=== PATIENT | female | born 1980 | race Caucasian/White ===

== ENCOUNTER 2016-08-12 18:41 | Emergency (ER) | payer MEDICAID ==
--- NOTE | 2016-08-12 18:56 | ER Document Report ---
ED Medical Screen (RME) - General Chief Complaint: Flu Symptoms Stated Complaint: FEVER,NAUSEA,BACK PAIN,CHEST PAIN Notes: 36-year-old female who states she's had flulike symptoms for approximately 4 days. I greeted and performed a rapid initial assessment of this patient. Comprehensive ED assessment and evaluation of the patient, analysis of test results and completion of the medical decision making process will be conducted by additional ED providers. TRAVEL OUTSIDE OF THE [place] IN LAST 30 DAYS: No - Related Data Allergies/Adverse Reactions: No Known Allergies Allergy (Verified 04/15/16 14:50) Past Medical History Psychiatric Medical History: Reports: Hx Anxiety - Immunizations Immunizations up to date: Yes Hx Diphtheria, Pertussis, Tetanus Vaccination: Yes Physical Exam - Vital signs Vitals: Temp Pulse Resp BP Pulse Ox 98.6 F 98 20 106/68 97 08/12/16 18:53 08/12/16 18:53 08/12/16 18:53 08/12/16 18:53 08/12/16 18:53 Course - Vital Signs Vital signs: Temp Pulse Resp BP Pulse Ox 98.6 F 98 20 106/68 97 08/12/16 18:53 08/12/16 18:53 08/12/16 18:53 08/12/16 18:53 08/12/16 18:53
[2016-08-12] MEDS ORDERED: ACETAMINOPHEN 325 MG TABLET PO ONE (19:58)
[2016-08-12] MEDS ORDERED: DIPHENHYDRAMINE HCL 25 MG CAPSULE PO ONE (19:58)
[2016-08-12] MEDS ORDERED: METOCLOPRAMIDE HCL 10 MG TABLET PO ONE (19:58)
--- NOTE | 2016-08-12 20:00 | ER Document Report ---
Addendum entered and electronically signed by CINTHIA TRINH PA 08/13/16 01:17: Course - Re-evaluation Re-evalutation: 08/13/16 Nurse Janet approached me about patient to be discharged, patient had repeat discharge final signs which showed new tachycardia and mild hypotension, I went and saw the patient, patient is noted to be tachycardic but is not in distress and is generally well-appearing. Patient is belching, she did appear nauseated and is asking for nausea medication. Examination and review of laboratory workup is suggestive of pyelonephritis, concern for sepsis with pyelonephritis. Recommended to patient that she receive IV antibiotics, IV fluids, and additional evaluation in the emergency department with potential admission, patient refuses, significant other refuses, they both state that they will agree to nausea medication now and then they will leave. After discussion patient does agree to IM Rocephin and reevaluation. On reevaluation patient continues to be tachycardic, blood pressure not significantly changed from prior or initial blood pressure. I recommended at that point that patient be admitted to the hospital for pyelonephritis and IV antibiotics. Patient refused, states that she wants to go home, I explained that she could become septic and , patient states that she understands this but that if she does not feel better by the morning she will return, she states that she will sign out AGAINST MEDICAL ADVICE and will not consider anything further. I discussed this once more with patient, she again states she'll sign out AGAINST MEDICAL ADVICE and that she understands the risks. I do feel patient has understanding of the risks because these have been discussed in full detail and patient is not altered, she does verbalize that she understand she is sick and that she will return in the morning if she does not feel any better and that she will return sooner if she feels worse. Patient signed out AGAINST MEDICAL ADVICE after receiving Rocephin. - Vital Signs Vital signs: Temp Pulse Resp BP Pulse Ox 98.9 F 127 H 16 106/50 L 97 08/12/16 23:53 08/12/16 23:53 08/12/16 23:53 08/12/16 23:53 08/12/16 23:53 - Laboratory Result Diagrams: 08/12/16 20:27 08/12/16 20:27 Laboratory results interpreted by me: 08/12/16 08/12/1617 20:27 20:27 21:25 WBC 16.0 H Hgb 11.9 L Band Neutrophils % 14 H Lymphocytes % (Manual) 2 L Abs Neuts (Manual) 13.8 H Abs Monocytes (Manual) 1.8 H Sodium 135.5 L Potassium 3.2 L Glucose 132 H Calcium 8.3 L Total Protein 5.5 L Albumin 3.0 L Urine Protein 100 H Urine Bilirubin SMALL H Urine Urobilinogen 4.0 H Ur Leukocyte Esterase LARGE H Original Note: HPI - HPI Patient complains to provider of: body aches and fever Pain Level: 5 Context: patient is a 36 year old female who presents to the ED for body aches, head ache and fever for 4 days. headache is described as focal over her left eye, consistent with her h/o migraine headaches. She denies any light or sound sensitivity, nausea without vomiting. Tolerating PO without difficulty, has been compliant with PO intake of water. Admits to nasal drainage that has started over the past 2 days. Denies any ear pain, sinus pressure, cough, chest pain, chest congestion, abdominal pain, urinary symptoms, abnormal BM's PMH: migraines, depression no PSH SH; 19 pack year, no etoh, social marijuana use - REPRODUCTIVE Reproductive: DENIES: : - DERM Skin Color: Normal Past Medical History - General Information source: Patient - Social History Smoking Status: Unknown if Ever Smoked Family History: Reviewed & Not Pertinent, CVA - Father Patient has suicidal ideation: No Patient has homicidal ideation: No Renal/ Medical History: Denies: Hx Peritoneal Dialysis Psychiatric Medical History: Reports: Hx Anxiety - Immunizations Immunizations up to date: Yes Hx Diphtheria, Pertussis, Tetanus Vaccination: Yes Vertical Provider Document - CONSTITUTIONAL Agree With Documented VS: Yes Exam Limitations: No Limitations General Appearance: WD/WN, Mild Distress - INFECTION CONTROL TRAVEL OUTSIDE OF THE [place] IN LAST 30 DAYS: No - HEENT HEENT: Atraumatic, Normal ENT Exam, Normocephalic - NECK Neck: Normal Inspection, Other - no tenderness to palpation. negative: Lymphadenopathy-Left, Lymphadenopathy-Right - RESPIRATORY Respiratory: Breath Sounds Normal, No Respiratory Distress, Wheezing O2 Sat by Pulse Oximetry: 97 - CARDIOVASCULAR Cardiovascular: Regular Rate, Regular Rhythm, No Murmur Pulses: Normal: Radial - GI/ABDOMEN Gastrointestinal: Abdomen Soft, Abdomen Non-Tender, No Organomegaly, Normal Bowel Sounds - BACK Back: Normal Inspection - MUSCULOSKELETAL/EXTREMETIES Musculoskeletal/Extremeties: MAEW, FROM, Tender - all extremities, No Edema. negative: Eccymosis - NEURO Level of Consciousness: Awake, Alert, Appropriate Motor/Sensory: No Motor Deficit, No Sensory Deficit - DERM Integumentary: Warm, Dry, No Rash Course - Re-evaluation Re-evalutation: 08/12/16 22:47 patient is a 36 year old female who is HDS, NAD and afebrile. labs reveal mild leukocytosis which is consistent with length of symptoms and +UA for UTI. Patient will be treated with PO abx and can f/u with PCP. IN regards to her headache, she has responded well to imitrex and reglan. Educated the patient on proper oral hydration with H2O and gatorade versus soda. Patient can follow up with primary care if symptoms do not improve in 4-5 days - Vital Signs Vital signs: Temp Pulse Resp BP Pulse Ox 98.6 F 98 20 106/68 97 08/12/16 18:53 08/12/16 18:53 08/12/16 18:53 08/12/16 18:53 08/12/16 18:53 - Laboratory Result Diagrams: 08/12/16 20:27 08/12/16 20:27 Discharge - Discharge Clinical Impression: UTI (urinary tract infection) Qualifiers: Urinary tract infection type: acute cystitis Hematuria presence: without hematuria Qualified Code(s): N30.00 - Acute cystitis without hematuria Condition: Good Disposition: HOME, SELF-CARE Instructions: Acetaminophen, Ciprofloxacin ([facility]) Additional Instructions: URINARY TRACT INFECTION: Your evaluation indicates that you have a urinary tract infection. This is due to germs growing in the bladder. This is a common problem. This infection usually responds quickly to antibiotics. Your antibiotic should be taken exactly as prescribed. Drink plenty of fluids -- three to four quarts a day. Occasionally, a bladder anesthetic will be prescribed to help stop the feeling of urgency until the antibiotic has a chance to clear the infection. This may cause your urine to be dark orange. Certain urine infections require a culture. If the doctor obtained a culture, the results will be back in two days. You should call to see if a change in treatment is needed. A repeat urinalysis after you finish treatment is often recommended. The physician will let you know if further testing is required. Call the doctor if you develop fever, chills, flank pain, inability to urinate, or blood in the urine. ANTIBIOTIC THERAPY: You have been given an antibiotic prescription. It's important that you take all the medication, unless instructed otherwise by your physician. Failure to complete the entire course can result in relapse of your condition. Common side effects of antibiotics include nausea, intestinal cramping, or diarrhea. Women may develop vaginal yeast infections, and babies can get yeast (thrush) in the mouth following the use of antibiotics. Contact your physician if you develop significant side effects from this medication. Allergy to this antibiotic can result in hives, wheezing, faintness, or itching. If symptoms of allergy occur, stop the medication and call the doctor. CIPROFLOXACIN: You have been given an antibacterial agent, ciprofloxacin (Cipro). This medicine is not related to the penicillins, sulfas, cephalosporins, or tetracyclines. It is often given to patients who are allergic to these drugs. It has been chosen for you either because other drugs are not appropriate, or because of the nature of your problem. Cipro should not be taken with antacids, as these can decrease its effectiveness. It can be taken without regard to meals. CIPRO SHOULD NOT BE TAKEN BY CHILDREN, NURSING WOMEN, OR WOMEN. Although Cipro is usually well-tolerated, common side effects can include nausea and diarrhea. Contact your doctor if you experience any unusual symptoms while on this medication, such as joint pain or swelling, shortness of breath, wheezing, faintness, or hives. FOLLOW-UP CARE: If you have been referred to a physician for follow-up care, call the physician s office for an appointment as you were instructed or within the next two days. If you experience worsening or a significant change in your symptoms, notify the physician immediately or return to the Emergency Department at any time for re-evaluation. Prescriptions: Ciprofloxacin HCl [Cipro 500 mg Tablet] 500 mg PO BID #14 tablet Referrals: JULI YING [NO LOCAL MD] - Follow up as needed
[2016-08-12 20:46] LABS: HEMATOCRIT 36.8 % (36.0-47.0); HEMOGLOBIN 11.9 g/dL (12.0-15.5); HGB HCT DIFFERENCE -1.1; MEAN CORPUSCULAR HGB CONC 32.3 g/dL (32.0-36.0); MEAN CORPUSCULAR VOLUME 93 fl (80-97); RED BLOOD COUNT 3.97 10^6/uL (3.72-5.28); RED CELL DISTRIBUTION WIDTH 13.3 % (11.5-14.0)
[2016-08-12 21:03] LABS: ALANINE AMINOTRANSFERASE 20 U/L (9-52); ALKALINE PHOSPHATASE 60 U/L (38-126); ANION GAP 10 (5-19); ASPARTATE AMINO TRANSFERASE 21 U/L (14-36); BILIRUBIN,TOTAL 0.6 mg/dL (0.2-1.3); BLOOD UREA NITROGEN 19 mg/dL (7-20); CALCIUM 8.3 mg/dL (8.4-10.2); CARBON DIOXIDE 27 mmol/L (22-30); CHLORIDE 99 mmol/L (98-107); CREATININE RESULT 0.89 mg/dL (0.52-1.25); GLUCOSE 132 mg/dL (75-110); POTASSIUM 3.2 mmol/L (3.6-5.0); SODIUM 135.5 mmol/L (137-145); TOTAL PROTEIN 5.5 g/dL (6.3-8.2)
[2016-08-12] MEDS ORDERED: NAPROXEN 250 MG TABLET PO ONE (21:18)
[2016-08-12 21:24] LABS: BASOPHILS % (MANUAL) 0 % (0-2); EOSINOPHILS % (MANUAL) 0 % (0-6); LYMPHOCYTES % (MANUAL) 2 % (13-45); OVALOCYTES SLIGHT; PLATELET CLUMPS PRESENT; TOTAL CELLS COUNTED 100
[2016-08-12 21:26] LABS: BAND NEUTROPHILS % (MANUAL) 14 % (3-5)
[2016-08-12] MEDS ORDERED: SUMATRIPTAN SUCCINATE 25 MG TABLET PO ONE (21:30)
[2016-08-12] MEDS ORDERED: SUMATRIPTAN SUCCINATE 25 MG TABLET ONE (22:05)
[2016-08-12 22:11] LABS: AMORPHOUS SEDIMENT,URINE TRACE /HPF; APPEARANCE,URINE CLOUDY; BILIRUBIN,URINE SMALL (NEGATIVE); GLUCOSE, URINE NEGATIVE (NEGATIVE); KETONES,URINE NEGATIVE (NEGATIVE); LEUKOCYTE ESTERASE,URINE LARGE (NEGATIVE); NITRITE,URINE NEGATIVE (NEGATIVE); PROTEIN,URINE 100 mg/dL (NEGATIVE); URINE SPECIFIC GRAVITY 1.021
[2016-08-12] MEDS ORDERED: CIPROFLOXACIN HCL 500 MG TABLET PO ONE (22:25)
[2016-08-12] MEDS ORDERED: NAPROXEN 250 MG TABLET ONE (22:43)
[2016-08-12] MEDS ORDERED: CEFTRIAXONE 1 GM/D5W RTU 50 ML IV ONE (23:06)
[2016-08-12] MEDS ORDERED: NORMAL SALINE 1000 ML 1,000 ML IV ONE (23:07)
[2016-08-12] MEDS ORDERED: LIDOCAINE 1% INJ-PF (10 MG/ML) 30 ML SDV INJ ONE (23:10)
[2016-08-12] MEDS ORDERED: CEFTRIAXONE INJ 1000 MG VIAL IM ONE (23:10)
[2016-08-12] MEDS ORDERED: ONDANSETRON 4 MG TAB.RAPDIS PO ONE (23:10)
[2016-08-12 23:54] VITALS: BP 106/50
[2016-08-13 14:33] LABS: PATH REVIEW PATHOLOGIST REVIEWED
== END 2016-08-12 23:48 | disposition home or self-care (01) ==
LOC: ER 18:41
DX: N30.00 Acute cystitis without hematuria (principal); M79.1 Myalgia; R00.0 Tachycardia, unspecified; I95.9 Hypotension, unspecified; R50.9 Fever, unspecified; R51 Headache; F17.210 Nicotine dependence, cigarettes, uncomplicated
CPT/HCPCS: 99283; 96372; 36415; 87086; 85025; 87088; 80053; 81001; 87804; J3490 ×7; S0119; J0696; 87186

== ENCOUNTER 2016-09-06 17:49 | Emergency (ER) | payer MEDICAID ==
--- NOTE | 2016-09-06 17:58 | ER Document Report ---
ED Medical Screen (RME) - General Stated Complaint: SORE THROAT,FEVER Notes: patient is a 36 year old female c/o sore throat, back pain, fever and chills. yesterday. previously treated for pyelo I have greeted and performed a rapid initial assessment of this patient. A comprehensive ED assessment and evaluation of the patient, analysis of test results and completion of the medical decision making process will be conducted by additional ED providers. TRAVEL OUTSIDE OF THE [place] IN LAST 30 DAYS: No - Related Data Allergies/Adverse Reactions: zolpidem [From Ambien] Allergy (Verified 09/06/16 17:55) Past Medical History Renal/ Medical History: Denies: Hx Peritoneal Dialysis Psychiatric Medical History: Reports: Hx Anxiety - Immunizations Immunizations up to date: Yes Hx Diphtheria, Pertussis, Tetanus Vaccination: Yes
[2016-09-06 18:32] LABS: ABSOLUTE LYMPHOCYTES (AUTO) 1.6 10^3/uL (0.5-4.7); ABSOLUTE MONOCYTES (AUTO) 0.4 10^3/uL (0.1-1.4); ABSOLUTE NEUT (AUTO) 5.1 10^3/uL (1.7-8.2); BASOPHILS % (AUTO) 0.4 % (0-2); EOSINOPHILS % (AUTO) 0.3 % (0-6); HEMATOCRIT 38.6 % (36.0-47.0); HGB HCT DIFFERENCE 0.4; LYMPHOCYTES % (AUTO) 22.7 % (13-45); MEAN CORPUSCULAR HEMOGLOBIN 30.6 pg (27.0-33.4); MEAN CORPUSCULAR HGB CONC 33.7 g/dL (32.0-36.0); MEAN CORPUSCULAR VOLUME 91 fl (80-97); MONOCYTES % (AUTO) 5.7 % (3-13); RED BLOOD COUNT 4.26 10^6/uL (3.72-5.28); RED CELL DISTRIBUTION WIDTH 14.4 % (11.5-14.0); SEGMENTED NEUTROPHILS % (AUTO) 70.9 % (42-78); WHITE BLOOD COUNT 7.1 10^3/uL (4.0-10.5)
[2016-09-06 18:41] LABS: APPEARANCE,URINE CLEAR; BILIRUBIN,URINE NEGATIVE (NEGATIVE); GLUCOSE, URINE NEGATIVE (NEGATIVE); KETONES,URINE NEGATIVE (NEGATIVE); LEUKOCYTE ESTERASE,URINE NEGATIVE (NEGATIVE); NITRITE,URINE NEGATIVE (NEGATIVE); PROTEIN,URINE NEGATIVE (NEGATIVE); URINE SPECIFIC GRAVITY 1.011; UROBILINOGEN,URINE NEGATIVE mg/dL (<2.0)
[2016-09-06 18:48] LABS: ALANINE AMINOTRANSFERASE 28 U/L (9-52); ALBUMIN 4.8 g/dL (3.5-5.0); ALKALINE PHOSPHATASE 85 U/L (38-126); ANION GAP 12 (5-19); ASPARTATE AMINO TRANSFERASE 24 U/L (14-36); BILIRUBIN,TOTAL 0.4 mg/dL (0.2-1.3); BLOOD UREA NITROGEN 7 mg/dL (7-20); CALCIUM 9.4 mg/dL (8.4-10.2); CARBON DIOXIDE 25 mmol/L (22-30); CHLORIDE 103 mmol/L (98-107); CREATININE RESULT 0.92 mg/dL (0.52-1.25); GLUCOSE 89 mg/dL (75-110); SODIUM 140.2 mmol/L (137-145); TOTAL PROTEIN 7.7 g/dL (6.3-8.2)
--- NOTE | 2016-09-06 19:03 | ER Document Report ---
ED Fever - General Chief Complaint: Sore Throat Stated Complaint: SORE THROAT,FEVER Time seen by provider: 19:25 Mode of Arrival: Ambulatory Information source: Patient TRAVEL OUTSIDE OF THE [place] IN LAST 30 DAYS: No - HPI Onset: Yesterday Associated symptoms: Body/muscle aches, Chills, Earache, Fever, Headache, Hoarseness, Nausea, Vomiting, Rhinnorhea, Sore throat. denies: Diarrhea, Leg swelling, Weakness Notes: The patient arrives with multiple complaints at this time. She states that yesterday she started with a sore throat and slight hoarseness to her voice. This is progressed to body aches with low back pain, mild headache, fever, cough , nausea, vomiting 1 this morning. She also reports some lower abdominal pain. She denies any dysuria or hematuria. She denies any rash. She denies any numbness or tingling. She denies any neck stiffness. She denies any numbness, tingling, weakness, bowel or bladder dysfunction. She denies using IV drugs. She denies a history of diabetes or immunosuppression. She denies any blood thinners. - Related Data Allergies/Adverse Reactions: zolpidem [From Ambien] Allergy (Verified 09/06/16 17:55) Past Medical History - Social History Smoking Status: Never Smoker Chew tobacco use (# tins/day): No Frequency of alcohol use: None Drug Abuse: None Family History: Reviewed & Not Pertinent, CVA - Father Patient has suicidal ideation: No Patient has homicidal ideation: No Renal/ Medical History: Denies: Hx Peritoneal Dialysis Psychiatric Medical History: Reports: Hx Anxiety - Immunizations Immunizations up to date: Yes Hx Diphtheria, Pertussis, Tetanus Vaccination: Yes Review of Systems - Review of Systems -: Yes All other systems reviewed and negative Physical Exam - Vital signs Vitals: Temp Pulse Resp BP Pulse Ox 98.4 F 131 H 24 H 144/82 H 100 09/06/16 17:57 09/06/16 17:57 09/06/16 17:57 09/06/16 17:57 09/06/16 17:57 - General General appearance: Appears well, Alert In distress: None - HEENT Head: Normocephalic, Atraumatic Eyes: Normal Conjunctiva: Normal. No: Icteric Pupils: PERRL Ears: Normal External canal: Normal Tympanic membrane: Normal Nasal: Clear rhinorrhea Mouth/Lips: Normal Pharynx: Normal, Post nasal drainage. No: Exudate, Peritonsillar abscess, Retropharyngeal abscess, Uvular edema, Potential airway comprom. Neck: No: Anterior cervical chain, Meningismus - Respiratory Respiratory status: No respiratory distress Chest status: Nontender Breath sounds: Normal. No: Rales, Rhonchi, Stridor, Wheezing Chest palpation: Normal - Cardiovascular Rhythm: Regular Heart sounds: Normal auscultation Murmur: No - Abdominal Inspection: Normal Distension: No distension Bowel sounds: Normal Tenderness: Tender - Across lower abdomen. No: McBurney's point, Davis's sign , Guarding, Rebound Organomegaly: No organomegaly - Back Back: Normal, Nontender. No: CVA tenderness, Vertebra tenderness - Extremities General upper extremity: Normal inspection, Nontender, Normal color, Normal ROM , Normal temperature General lower extremity: Normal inspection, Nontender, Normal color, Normal ROM , Normal temperature, Normal weight bearing. No: Merrill's sign - Neurological Neuro grossly intact: Yes Cognition: Normal Orientation: AAOx4 [place] Coma Scale Eye Opening: Spontaneous [place] Coma Scale Verbal: Oriented [place] Coma Scale Motor: Obeys Commands Neli Coma Scale Total: 15 Speech: Normal Cranial nerves: Normal Motor strength normal: LUE, RUE, LLE, RLE Additional motor exam normals: Equal egg breaker Sensory: Normal Knee - Reflex grade: 2 = Normal Ankle - Reflex grade: 2 = Normal - Psychological Associated symptoms: Normal affect, Normal mood - Skin Skin Temperature: Warm Skin Moisture: Dry Skin Color: Normal Course - Re-evaluation Re-evalutation: 09/06/16 21:45 The patient states that she is feeling significant better at this time after her fluids and Toradol. All tests are unremarkable at this time. Awaiting the results of her chest x-ray and the patient will be discharged upon those results. 09/06/16 22:10 Patient is nontoxic appearing with stable vitals. Her labs are all unremarkable , strep and flu were negative. CT abdomen and pelvis and chest x-ray showed no acute abnormalities. Patient is feeling significantly better at this time. Urine is clear with no signs of infection. Is minimal tenderness on exam. She denies any vaginal symptoms at this time. Patient will be discharged home with prescriptions for Naprosyn and Vicodin. Follow up if not better in 3-5 days, sooner if getting worse. The patient is noted to have elevated blood pressure during today's emergency department visit. The patient was informed of this finding. The patient was instructed that this may be related to pre-hypertension and requires further evaluation with a primary care provider. The patient has no hypertensive symptoms at this time. - Vital Signs Vital signs: Temp Pulse Resp BP Pulse Ox 102.4 F H 115 H 18 138/91 H 99 09/06/16 19:23 09/06/16 19:23 09/06/16 19:23 09/06/16 19:23 09/06/16 19:23 - Laboratory Result Diagrams: 09/06/16 18:05 09/06/16 18:05 Laboratory results interpreted by me: 09/06/16 18:05 RDW 14.4 H Discharge - Discharge Clinical Impression: Febrile illness, acute, Myalgia Condition: Stable Disposition: HOME, SELF-CARE Instructions: Viral Syndrome ([facility]) Additional Instructions: Take medications as prescribed. Drink plenty fluids. Follow up if not better in 3-5 days, sooner if getting worse. Your blood pressure was elevated during today's visit. Have this rechecked with your doctor. Prescriptions: Hydrocodone Bit/Homatropine [Hycodan Syrup 5-1.5 mg/5 ml Ud Cup] 5 ml PO Q4HP PRN #120 ml PRN Reason: Naproxen Sodium 550 mg PO BID PRN #20 tablet PRN Reason: Forms: Elevated Blood Pressure
[2016-09-06] MEDS ORDERED: ONDANSETRON HCL INJ/PF 4 MG/2 ML SDV IV ONE (19:32)
[2016-09-06] MEDS ORDERED: NORMAL SALINE 1000 ML 1,000 ML IV ONE (19:32)
[2016-09-06] MEDS ORDERED: KETOROLAC TROMETHAMINE INJ/PF 30 MG/1 ML SDV IV ONE (19:32)
[2016-09-06] MEDS ORDERED: ACETAMINOPHEN 325 MG TABLET PO ONE (21:44)
[2016-09-06 22:37] VITALS: BP 136/82
== END 2016-09-06 22:37 | disposition home or self-care (01) ==
LOC: ER 17:49
DX: J02.9 Acute pharyngitis, unspecified (principal); R50.9 Fever, unspecified; M79.1 Myalgia
CPT/HCPCS: 99284; 36415; 87070; 87086; 87880; 85025; 81025; 80053; 81001; 87804; 71020; 74177; J3490; J1885; J2405

== ENCOUNTER 2016-12-18 15:53 | Emergency (ER) | payer MEDICAID ==
[2016-12-18] MEDS ORDERED: ONDANSETRON 4 MG TAB.RAPDIS PO ONE (16:56)
--- NOTE | 2016-12-18 16:56 | ER Document Report ---
ED Medical Screen (RME) - General Chief Complaint: Nausea/Vomiting Stated Complaint: VOMITING Time Seen by Provider: 12/18/16 16:55 Notes: Pt states vomiting started this morning after eating a bite of a hamburger. Given Zofran this family at [facility] but continues to vomit. No fever, did have diarrhea x 2 this am. States she has vomited about 30 times. No sick contacts. I have greeted and performed a rapid initial assessment of this patient. A comprehensive ED assessment and evaluation of the patient, analysis of test results and completion of the medical decision making process will be conducted by additional ED providers. TRAVEL OUTSIDE OF THE [place] IN LAST 30 DAYS: No - Related Data Allergies/Adverse Reactions: zolpidem [From Ambien] Allergy (Verified 12/18/16 16:55) Past Medical History Renal/ Medical History: Denies: Hx Peritoneal Dialysis Psychiatric Medical History: Reports: Hx Anxiety - Immunizations Immunizations up to date: Yes Hx Diphtheria, Pertussis, Tetanus Vaccination: Yes Physical Exam - Vital signs Vitals: Temp Pulse Resp BP Pulse Ox 97.4 F 51 L 16 134/80 H 100 12/18/16 16:36 12/18/16 16:36 12/18/16 16:36 12/18/16 16:36 12/18/16 16:36 Course - Vital Signs Vital signs: Temp Pulse Resp BP Pulse Ox 97.4 F 51 L 16 134/80 H 100 12/18/16 16:36 12/18/16 16:36 12/18/16 16:36 12/18/16 16:36 12/18/16 16:36
[2016-12-18] MEDS ORDERED: NORMAL SALINE 1000 ML 1,000 ML IV ONE (16:57)
[2016-12-18 17:55] LABS: AMORPHOUS SEDIMENT,URINE TRACE /HPF; APPEARANCE,URINE CLOUDY; BILIRUBIN,URINE NEGATIVE (NEGATIVE); GLUCOSE, URINE NEGATIVE (NEGATIVE); KETONES,URINE 20 mg/dL (NEGATIVE); LEUKOCYTE ESTERASE,URINE MODERATE (NEGATIVE); NITRITE,URINE NEGATIVE (NEGATIVE); PROTEIN,URINE 100 mg/dL (NEGATIVE); URINE SPECIFIC GRAVITY 1.028; UROBILINOGEN,URINE NEGATIVE mg/dL (<2.0)
[2016-12-18] MEDS ORDERED: METOCLOPRAMIDE HCL INJ/PF 10 MG/2 ML SDV IV ONE (18:26)
[2016-12-18] MEDS ORDERED: PANTOPRAZOLE SODIUM 40 MG VIAL IV ONE (18:26)
--- NOTE | 2016-12-18 19:24 | ER Document Report ---
ED GI/ - General Chief Complaint: Nausea/Vomiting Stated Complaint: VOMITING Time Seen by Provider: 12/18/16 16:55 Notes: The patient is a 36-year-old female, no past medical history, presents with one day of nausea, vomiting and watery diarrhea after she ate a hamburger at [employer]. She is vomiting up anything she drinks. She denies fevers, abdominal pain, hematemesis, urinary symptoms, blood in stool or chest pain TRAVEL OUTSIDE OF THE [place] IN LAST 30 DAYS: No - Related Data Allergies/Adverse Reactions: zolpidem [From Ambien] Allergy (Verified 12/18/16 16:55) Past Medical History - Social History Smoking Status: Current Every Day Smoker Chew tobacco use (# tins/day): No Frequency of alcohol use: None Drug Abuse: None Family History: Reviewed & Not Pertinent, CVA - Father Renal/ Medical History: Denies: Hx Peritoneal Dialysis Psychiatric Medical History: Reports: Hx Anxiety - Immunizations Immunizations up to date: Yes Hx Diphtheria, Pertussis, Tetanus Vaccination: Yes Review of Systems - Review of Systems Notes: REVIEW OF SYSTEMS: CONSTITUTIONAL: -fevers, -chills EENT: -eye pain, -difficulty swallowing, -nasal congestion CARDIOVASCULAR:-chest pain, -syncope. RESPIRATORY: -cough, -SOB GASTROINTESTINAL: -abdominal pain, - nausea, -vomiting, -diarrhea GENITOURINARY: -dysuria, -hematuria MUSCULOSKELETAL: -back pain, -neck pain SKIN: -rash or skin lesions. HEMATOLOGIC: -easy bruising or bleeding. LYMPHATIC: -swollen, enlarged glands. NEUROLOGICAL: -altered mental status or loss of consciousness, -headache, - neurologic symptoms PSYCHIATRIC: -anxiety, -depression. ALL OTHER SYSTEMS REVIEWED AND NEGATIVE. Physical Exam - Vital signs Vitals: Temp Pulse Resp BP Pulse Ox 97.4 F 51 L 16 134/80 H 100 12/18/16 16:36 12/18/16 16:36 12/18/16 16:36 12/18/16 16:36 12/18/16 16:36 - Notes Notes: PHYSICAL EXAMINATION: GENERAL: Well-appearing, well-nourished and in no acute distress. HEAD: Atraumatic, normocephalic. EYES: Pupils equal round and reactive to light, extraocular movements intact, sclera anicteric, conjunctiva are normal. ENT: nares patent, oropharynx clear without exudates. Moist mucous membranes. NECK: Normal range of motion, supple without lymphadenopathy LUNGS: Breath sounds clear to auscultation bilaterally and equal. No wheezes rales or rhonchi. HEART: Regular rate and rhythm without murmurs ABDOMEN: Soft, nontender, normoactive bowel sounds. No guarding, no rebound. No masses appreciated. EXTREMITIES: Normal range of motion, no pitting or edema. No cyanosis. NEUROLOGICAL: Cranial nerves grossly intact. Normal speech, normal gait. Normal sensory and motor exams. PSYCH: Normal mood, normal affect. SKIN: Warm, Dry, normal turgor, no rashes or lesions noted. Course - Re-evaluation Re-evalutation: Patient appears well. After Zofran and Reglan, patient is drinking water without any vomiting. Her urine does not appear that she is dehydrated. It does have leukocyte esterase, but she has no symptoms of UTI. Her abdominal exam is completely nontender. Will discharge home with Zofran and instructions to stay hydrated. Given return precautions and she understands - Vital Signs Vital signs: Temp Pulse Resp BP Pulse Ox 97.4 F 57 L 16 128/57 H 94 12/18/16 16:36 12/18/16 19:53 12/18/16 19:53 12/18/16 19:53 12/18/16 19:53 - Laboratory Laboratory results interpreted by me: 12/18/16 17:15 Urine Protein 100 H Urine Ketones 20 H Ur Leukocyte Esterase MODERATE H Discharge - Discharge Clinical Impression: Nausea and vomiting Qualifiers: Vomiting type: unspecified Vomiting Intractability: non-intractable Qualified Code(s): R11.2 - Nausea with vomiting, unspecified Condition: Good Disposition: HOME, SELF-CARE Additional Instructions: VOMITING: Vomiting (or nausea without vomiting) can be caused by many other different problems. It can mean that something's wrong with the stomach, such as ulcers or inflammation or the intestinal tract, such as appendicitis. But it can also be a symptom of a problem that has nothing to do with the stomach or intestines. Vomiting is common with severe headaches, earaches, tonsillitis, and kidney infections, etc. We see it with pneumonia or heart attacks. Drugs can cause nausea and vomiting. Many abdominal problems cause vomiting; for example, gallstones, kidney stones, pancreatitis, and intestinal obstruction ( blocked bowels). In most cases, curing the vomiting depends on fixing the problem that caused it. For temporary relief, we may use an anti-nausea medicine. For home use, we can prescribe suppositories, chewable pills, pills that dissolve in the mouth, or liquid anti-nausea drugs. If the vomiting seems to be caused by a problem in the stomach, acid-suppressing drugs may be prescribed as well. It's important to avoid dehydration. Sip small amounts of clear liquids ( soft drinks, tea, broth, etc) . Try to take fluids frequently even if you are vomiting to prevent dehydration. Take increasing amounts of fluid and when liquids are being consumed successfully, advance to small amounts of bland food (toast, soups, mashed potatoes, etc.) until you are able to resume a regular diet. Avoid aspirin, tobacco, and alcohol. If the vomiting worsens, if the problem that's making you vomit worsens, or if there's evidence of bleeding in the stomach (such as black, tarry stool, or bloody or black vomit), you should return immediately. Also, return if abdominal pain worsens or becomes localized to one area or you develop high fever. Call your doctor if you aren't improved in 24 hours. DIARRHEA, NON-SPECIFIC: Diarrhea means frequent, watery stools. There are many causes. Any problem that keeps the intestinal tract from absorbing water from the stool can lead to diarrhea. A sudden new diarrhea problem is usually caused by a virus, food sensitivity, toxic bacteria, or drugs. In this case, we expect the problem to go away soon. Testing is done only if you seem seriously ill from the diarrhea. If you have chronic diarrhea, or diarrhea that keeps coming back, we need to find out why. Chronic diarrhea can be due to inflammation of the bowels such as Crohn's disease or ulcerative colitis, food sensitivity such as intolerance to lactose or wheat protein, irritable bowel syndrome, and other problems. If your diarrhea is a significant problem but it's not clear why you have it, we' ll refer you to a specialist for further testing. During an episode of diarrhea, drink small amounts (two to six ounces) of clear liquids (soft drinks, sport drinks, herb teas, broth, etc). Take fluids frequently to prevent dehydration. It's usually not a problem to take mild anti- diarrhea medication such as Kaopectate or Pepto-Bismol. As the diarrhea eases, advance to small amounts of bland food (mashed potato, toast) for 24 hours. Call the physician if blood appears in your vomit or stool, if vomiting lasts longer than 24 hours, if the abdominal pain worsens or becomes localized to one area, if you develop high fever, or if you become lightheaded and weak. VIRAL SYNDROME: The physician has diagnosed a viral infection. Viruses not only cause "colds," but can cause many different symptoms including generalized aching, fever, headache, cough, diarrhea, nausea, vomiting, and fatigue. The treatment, for the most part, is simply relief of symptoms. This means that antibiotics are usually not given. Rest, fluids, pain medications and, occasionally, medication for the specific symptoms that are most bothersome will be prescribed. Use good handwashing to avoid passing the virus to others. Shared toys should be cleaned with disinfectant. Clean the toilets, sinks, and counter surfaces in bathrooms. Launder clothing in hot water. Contact the physician if you develop any new or unusual symptoms such as severe headache, stiff neck, high fever, chest pain, productive cough, or shortness of breath. You should be rechecked if you don't see marked improvement within seven to 10 days. INTRAVENOUS (I V) FLUIDS: As part of your care today, you received intravenous (IV) fluids. IV fluids are administered to patients who are dehydrated or to those who have certain chemical (electrolyte) abnormalities that need correcting. ANTINAUSEA MEDICATION: You have been given a medication to suppress nausea and vomiting. This type of medication can be given as a shot, pill, or suppository. It will usually last for many hours. Pills and shots usually last six to eight hours. For the typical illness, only one or two doses of the medication may be necessary. Mild lightheadedness may occur. This type of medicine can cause drowsiness. Do not drive or operate dangerous machinery while under its influence. Do not mix with alcohol. See your doctor at once if you have muscle spasms or tightness, or uncontrollable motions (particularly of the neck, mouth, or jaw). Persistent vomiting or severe lightheadedness should also be evaluated by the physician. REGLAN (METOCLOPRAMIDE): Reglan has been prescribed. This medicine affects the stomach and intestines. It can be used to treat nausea and vomiting, to prevent reflux of stomach acid up into the esophagus, or to increase the contractions of the stomach and intestines. It is often prescribed for esophagitis, and for paralysis of the stomach in diabetics. Reglan can cause either mild restlessness or drowsiness. You should contact the doctor at once if you become extremely restless, anxious, or cannot sleep, or if you develop uncontrollable motions of the lips, tongue, or jaw. Do not take alcohol with this medicine. Do not drive or operate machinery until you have been taking this medicine long enough to know how it affects you. Call the doctor if you develop abdominal pains, lightheadedness, black stool, or blood in the stool or vomitus. FOLLOW-UP CARE: If you have been referred to a physician for follow-up care, call the physician s office for an appointment as you were instructed or within the next two days. If you experience worsening or a significant change in your symptoms, notify the physician immediately or return to the Emergency Department at any time for re-evaluation.
[2016-12-18] MEDS ORDERED: ONDANSETRON ODT 4 MG TAB (6 TAB/DSPK) PO PRN (19:29)
[2016-12-18 19:54] VITALS: BP 128/57
== END 2016-12-18 19:53 | disposition home or self-care (01) ==
LOC: ER 15:53
DX: R11.2 Nausea with vomiting, unspecified (principal); R19.7 Diarrhea, unspecified; F17.200 Nicotine dependence, unspecified, uncomplicated; Z88.8 Allergy status to other drugs, medicaments and biological substances
CPT/HCPCS: 99284; 96361; 96374; 96375; 81001; S0119; J2765; S0164; J7030